=== PATIENT | male | born 1960 | race American Indian/Alaskan Native ===

== ENCOUNTER 2021-07-27 10:46 | Emergency (ER) | payer SELFPAY ==
[2021-07-27] MEDS ORDERED: MORPHINE 4 MG/1 ML INJ IV ONE ×2 (11:02→16:53)
[2021-07-27] MEDS ORDERED: dexAMETHasone 20 MG/5 ML VIAL IV ONE (11:02)
[2021-07-27] MEDS ORDERED: SODIUM CHLORIDE 0.9% 1000 ML 1,000 ML IV ONE (11:02)
[2021-07-27 11:36] LABS: Hematocrit 39.4 % (35.5-45.6); Hemoglobin 13.9 gm/dl (11.8-15.2); Mean Corpuscular HGB Conc 35 % (32-34); Mean Corpuscular Volume 81 fl (84-94); Platelet Count 422 K/mm3 (140-440); Red Blood Count 4.87 M/mm3 (3.65-5.03); Red Cell Distribution Width 13.9 % (13.2-15.2)
[2021-07-27 11:56] LABS: Alanine Aminotransferase 29 units/L (7-56); BUN/Creatinine Ratio 10; Blood Urea Nitrogen 9 mg/dL (9-20); Calcium 9.1 mg/dL (8.4-10.2); Hemolysis Index 6
[2021-07-27 12:10] LABS: Band Neutrophils # (Manual) 0.3 K/mm3; Platelet Estimate Consistent w Auto; RBC Morphology Normal; Total Cells Counted 100
--- NOTE | 2021-07-27 14:28 | Emergency Department Report ---
ED ENT HPI - General Chief complaint: Dental/Oral Stated complaint: TOOTH PAIN Time Seen by Provider: 07/27/21 10:58 Source: patient Mode of arrival: Ambulatory Limitations: No Limitations - History of Present Illness Initial comments: This is a 60-year-old male nontoxic, well nourished in appearance, no acute signs of distress presents to the ED with c/o of left-sided facial swelling and pain times several days. Patient stated had his teeth extracted and is on antibiotics but stated noticed swelling that started yesterday and worsened today. Patient denies any trauma or injuries. Patient denies any other symptoms or complaints. Patient denies any numbness, tingling, fever, chills, headache, stiff neck, abdominal pain, chest pain, shortness of breath. Patient denies any drug allergies. -: days(s) Severity: mild Severity scale (0 -10): 8 Quality: aching Consistency: constant Improves with: none Worsens with: none Associated Symptoms: gum swelling, toothache. denies: fever, cough, pain with swallowing, sore throat, tinnitus, hearing loss, discharge from ear, rhinorrhea - Related Data Allergies Allergy/AdvReac Type Severity Reaction Status Date / Time No Known Allergies Allergy Verified 07/27/21 10:52 ED Dental HPI - General Chief complaint: Dental/Oral Stated complaint: TOOTH PAIN Time Seen by Provider: 07/27/21 10:58 Source: patient Mode of arrival: Ambulatory Limitations: No Limitations - Related Data Allergies Allergy/AdvReac Type Severity Reaction Status Date / Time No Known Allergies Allergy Verified 07/27/21 10:52 ED Review of Systems ROS: Stated complaint: TOOTH PAIN Other details as noted in HPI Comment: All other systems reviewed and negative Constitutional: denies: chills, fever Eyes: denies: eye pain, eye discharge, vision change ENT: dental pain. denies: ear pain, throat pain, hearing loss, epistaxis, congestion Respiratory: denies: cough, shortness of breath, wheezing Cardiovascular: denies: chest pain, palpitations Endocrine: no symptoms reported Gastrointestinal: denies: abdominal pain, nausea, diarrhea Genitourinary: denies: urgency, dysuria Musculoskeletal: denies: back pain, joint swelling, arthralgia Skin: denies: rash, lesions Neurological: denies: headache, weakness, paresthesias Psychiatric: denies: anxiety, depression Hematological/Lymphatic: denies: easy bleeding, easy bruising ED Physical Exam - General Limitations: No Limitations General appearance: alert, in no apparent distress - Head Head exam: Present: atraumatic, normocephalic - Eye Eye exam: Present: normal appearance - Expanded ENT Exam Expanded Ear exam: Present: normal external inspection Mouth exam: Present: normal external inspection, tongue normal. Absent: drooling, trismus, muffled voice Teeth exam: Present: dental tenderness #, gingival enlargement, other (left facial swelling) Throat exam: Positive: normal inspection, other (uvula midline). Negative: tonsillar erythema, tonsillomegaly, tonsillar exudate, R peritonsillar mass, L peritonsillar mass - Neck Neck exam: Present: normal inspection, full ROM. Absent: tenderness, meningismus, lymphadenopathy - Respiratory Respiratory exam: Absent: respiratory distress - Cardiovascular Cardiovascular Exam: Present: regular rate - Extremities Exam Extremities exam: Present: full ROM - Back Exam Back exam: Present: full ROM - Neurological Exam Neurological exam: Present: alert, oriented X3, normal gait - Psychiatric Psychiatric exam: Present: normal affect, normal mood - Skin Skin exam: Present: warm, dry, intact, normal color. Absent: rash ED Course Vital Signs 07/27/21 07/27/21 10:53 14:19 Temperature 97.5 F L 98.3 F Pulse Rate 108 H 80 Respiratory 18 Rate Blood Pressure 125/74 101/56 O2 Sat by Pulse 98 99 Oximetry - Reevaluation(s) Reevaluation #1: 07/27/21 14:29 Patient is speaking in full sentences with no signs of distress noted. - Consultations Consultation #1: 07/27/21 14:53 Patient has been consulted with Nhan Membreno about patient history, physical exam, and labs/imaging results and agrees to ED plan of care and transfer patient with oral surgery on staff. 07/27/21 14:54 Awaiting for Oral [place] [facility] to call back at this time. Consultation #2: 07/27/21 15:12 Patient has been consulted with Dr. Green (oral surgery) and Dr. Hanley (Emergency medicine doctor) [facility] about patient history, physical exam, and labs/imaging results and accepts patient to services. ED Medical Decision Making - Lab Data Result diagrams: 07/27/21 11:17 07/27/21 11:17 Lab Results 07/27/21 07/27/21 Range/Units 11:17 11:17 WBC 9.8 (4.5-11.0) K/mm3 RBC 4.87 (3.65-5.03) M/mm3 Hgb 13.9 (11.8-15.2) gm/dl Hct 39.4 (35.5-45.6) % MCV 81 L (84-94) fl MCH 29 (28-32) pg MCHC 35 H (32-34) % RDW 13.9 (13.2-15.2) % Plt Count 422 (140-440) K/mm3 [place]oke % (Auto) Store Clerk Checker Add Manual Diff Complete Total Counted 100 Seg Neuts % (Manual) 56.0 (40.0-70.0) % Band Neutrophils % 3.0 % Lymphocytes % (Manual) 11.0 L (13.4-35.0) % Reactive Lymphs % (Man) 2.0 % Monocytes % (Manual) 24.0 H (0.0-7.3) % Eosinophils % (Manual) 2.0 (0.0-4.3) % Basophils % (Manual) 1.0 (0.0-1.8) % Metamyelocytes % 1.0 % Nucleated RBC % Not Reportable Seg Neutrophils # Man 5.5 (1.8-7.7) K/mm3 Band Neutrophils # 0.3 K/mm3 Lymphocytes # (Manual) 1.1 L (1.2-5.4) K/mm3 Abs React Lymphs (Man) 0.2 K/mm3 Monocytes # (Manual) 2.4 H (0.0-0.8) K/mm3 Eosinophils # (Manual) 0.2 (0.0-0.4) K/mm3 Basophils # (Manual) 0.1 (0.0-0.1) K/mm3 Metamyelocytes # 0.1 K/mm3 Myelocytes # 0.0 K/mm3 Promyelocytes # 0.0 K/mm3 Blast Cells # 0.0 K/mm3 WBC Morphology Not Reportable Hypersegmented Neuts Not Reportable Hyposegmented Neuts Not Reportable Hypogranular Neuts Not Reportable Smudge Cells Not Reportable Toxic Granulation Not Reportable Toxic Vacuolation Not Reportable Dohle Bodies Not Reportable Pelger-Huet Anomaly Not Reportable Zunilda Rods Not Reportable Platelet Estimate Consistent w auto Clumped Platelets Not Reportable Plt Clumps, EDTA Not Reportable Large Platelets Not Reportable Giant Platelets Not Reportable Platelet Satelliting Not Reportable Plt Morphology Comment Not Reportable RBC Morphology Normal Dimorphic RBCs Not Reportable Polychromasia Not Reportable Hypochromasia Not Reportable Poikilocytosis Not Reportable Anisocytosis Not Reportable Microcytosis Not Reportable Macrocytosis Not Reportable Spherocytes Not Reportable Pappenheimer Bodies Not Reportable Sickle Cells Not Reportable Target Cells Not Reportable Tear Drop Cells Not Reportable Ovalocytes Not Reportable Helmet Cells Not Reportable Jimenes-Revere Bodies Not Reportable Bomoseen Rings Not Reportable [place] Cells Not Reportable Bite Cells Not Reportable Crenated Cell Not Reportable Elliptocytes Not Reportable Acanthocytes (Spur) Not Reportable Rouleaux Not Reportable Hemoglobin C Crystals Not Reportable Schistocytes Not Reportable Malaria parasites Not Reportable Juancarlos Bodies Not Reportable Hem Pathologist Commnt No Sodium 132 L (137-145) mmol/L Potassium 3.5 L (3.6-5.0) mmol/L Chloride 90.3 L (98-107) mmol/L Carbon Dioxide 28 (22-30) mmol/L Anion Gap 17 mmol/L BUN 9 (9-20) mg/dL Creatinine 0.9 (0.8-1.3) mg/dL Estimated GFR > 60 ml/min BUN/Creatinine Ratio 10 % Glucose 107 H (75-100) mg/dL Calcium 9.1 (8.4-10.2) mg/dL Total Bilirubin 1.00 (0.1-1.2) mg/dL AST 28 (5-40) units/L ALT 29 (7-56) units/L Alkaline Phosphatase 76 (35-129) units/L Total Protein 8.0 (6.3-8.2) g/dL Albumin 3.0 L (3.9-5) g/dL Albumin/Globulin Ratio 0.6 % - Radiology Data [facility] [address] [place] [address] Cat Scan Report Signed Patient: JOSIE MCKEON MR#: [id number] : 1960 Acct:[id number] Age/Sex: 60 / M ADM Date: 07/27/21 Loc: ED Attending Dr: Ordering Physician: CHUCK AVILES NP Date of Service: 07/27/21 Procedure(s): CT neck w con Accession Number(s): [id number] cc: CHUCK AVIELS NP CT neck w con INDICATION / CLINICAL INFORMATION: 60 years Male; LEFT sided facial pain with swelling, possible abscess. TECHNIQUE: Contiguous thin cut axial images obtained through the neck following IV contrast. Sagittal and coronal reconstructions performed by the technologist. All CT scans at this location are performed using CT dose reduction for ALARA by means of automated exposure control. COMPARISON: None available. FINDINGS: There is extensive loculated fluid collection involving much of the submental space more extensive on the left with numerous foci of air compatible with abscess at. The largest pocket measures approximately 6.5 cm transversely extending from the lower portion of the anterior mandible to the level the thyroid cartilage measuring 5.5 cm sagitt ally. Irregular component foci of air are also seen involving the more superficial soft tissues on the left. The left submandibular gland appears to be displaced laterally and anteriorly with diffuse enhancement. There are notable component of the abscess courses along the medial aspect and the submandibular gland and may reflect origin of the infectious process. A focus of air is seen more posteriorly along with inflammatory changes and effacement of the soft tissues within the left fence maker space. MUCOSAL SPACE: Along the left there is prominent extension of the abscess along the left parapharyngeal and hypopharyngeal soft tissues with prevertebral component measure approximately 1.6 cm AP at the C3-4 level. Additionally, this finding results in significant displacement of the laryngeal structures anteriorly with effacement of the left pyriform sinus at. There is also notable effacement of the left vallecula. Inflammatory changes also extend posteriorly to the region of the anterior left carotid sheath structures. No significant edematous changes are seen extending into the visualized superior mediastinum on the current exam. LYMPH NODES: There is associated multiple reactive lymphadenopathy. SALIVARY GLANDS: As above involving the left submandibular gland. There is mild mass effect upon the right submandibular gland. Inflammatory changes are seen adjacent to the deep segment of the left parotid gland. The right parotid gland is unremarkable. THYROID GLAND: The thyroid gland demonstrate appropriate size and contour. There are small subcentimeter foci of decreased attenuation which are nonspecific. PARANASAL SINUSES: Visualized paranasal sinuses and mastoid air cells are essentially clear. SPINE: There are multilevel endplate changes involving anterior cervical spine with limbus vertebrae. VASCULAR STRUCTURES: Vascular structures are grossly normal in appearance. IMPRESSION: 1. There is a large transspatial abscess involving the submental, submandibular, left fence maker and retropharyngeal spaces as detailed above. Signer Name: David Segal MD Signed: 07/27/2021 2:44 PM Workstation Name: [id number] Transcribed By: MR Dictated By: David Segal MD Electronically Authenticated By: David Segal MD Signed Date/Time: 07/27/21 1444 DD/ 1432 TD/TT: - Medical Decision Making This is a 60-year-old male that presents with dental abscess. Patient is stable and was examined by me. Patient received clindamycin, Decadron and morphine for pain. Patient placed on n.p.o. Patient transferred [place] [facility] [place]. Patient is notified of the ED plan of care and agrees to the plan of care. At time of transfer, the patient does not seem toxic or ill in appearance. No acute signs of distress noted. Patient agrees to transfer treatment plan of care. No further questions noted by the patient. Critical care attestation.: If time is entered above; I have spent that time in minutes in the direct care of this critically ill patient, excluding procedure time. ED Disposition Clinical Impression: Submandibular abscess, Submental abscess, Abscess of fence maker space of mouth, Retropharyngeal abscess Disposition: 02 SHORT TERM HOSPITAL Is pt being admited?: No Condition: Stable Time of Disposition: 15:27
--- NOTE | 2021-07-27 14:48 | Cat Scan Report ---
CT neck w con INDICATION / CLINICAL INFORMATION: 60 years Male; LEFT sided facial pain with swelling, possible abscess. TECHNIQUE: Contiguous thin cut axial images obtained through the neck following IV contrast. Sagittal and sanders l reconstructions performed by the technologist. All CT scans at this location are performed using CT dose reduction for ALARA by means of automated exposure control. COMPARISON: None available. FINDINGS: There is extensive loculated fluid collection involving much of the submental space more ex tensive on the left with numerous foci of air compatible with abscess at. The largest pocket measures approximately 6.5 cm transversely extending from the lower portion of the anterior mandible to the l evel the thyroid cartilage measuring 5.5 cm sagittally. Irregular component foci of air are also seen involving the more superficial soft tissues on the left. The left submandibular gland appears to be displaced laterally and anteriorly with diffuse enhancement. There are notable component of the absce ss courses along the medial aspect and the submandibular gland and may reflect origin of the infectio us process. A focus of air is seen more posteriorly along with inflammatory changes and effacement of the soft tissues within the left gamb cutter space. MUCOSAL SPACE: Along the left there is prominent extension of the abscess along the left parapharynge al and hypopharyngeal soft tissues with prevertebral component measure approximately 1.6 cm AP at the C3-4 level. Additionally, this finding results in significant displacement of the laryngeal structur es anteriorly with effacement of the left pyriform sinus at. There is also notable effacement of the left vallecula. Inflammatory changes also extend posteriorly to the region of the anterior left carot id sheath structures. No significant edematous changes are seen extending into the visualized superio r mediastinum on the current exam. LYMPH NODES: There is associated multiple reactive lymphadenopathy. SALIVARY GLANDS: As above involving the left submandibular gland. There is mild mass effect upon the right submandibular gland. Inflammatory changes are seen adjacent to the deep segment of the left par otid gland. The right parotid gland is unremarkable. THYROID GLAND: The thyroid gland demonstrate appropriate size and contour. There are small subcentime ter foci of decreased attenuation which are nonspecific. PARANASAL SINUSES: Visualized paranasal sinuses and mastoid air cells are essentially clear. SPINE: There are multilevel endplate changes involving anterior cervical spine with limbus vertebrae. VASCULAR STRUCTURES: Vascular structures are grossly normal in appearance. IMPRESSION: 1. There is a large transspatial abscess involving the submental, submandibular, left gamb cutter and retropharyngeal spaces as detailed above. Signer Name: David Segal MD Signed: 07/27/2021 2:44 PM Workstation Name: [id number]
[2021-07-27 19:18] VITALS: BP 101/62
== END 2021-07-27 19:41 | disposition short-term general hospital (02) ==
LOC: ED 10:46
DX: L02.01 Cutaneous abscess of face (principal); K12.2 Cellulitis and abscess of mouth; J39.0 Retropharyngeal and parapharyngeal abscess
CPT/HCPCS: 36415; 70491; 80053; 85007; 85025; 96365; 96375; 99285; J1100; J2270; J7030; Q9967; 99284